=== PATIENT | male | born 1975 | race Caucasian/White ===

== ENCOUNTER → 2017-08-05 | Outpatient (CLI) | payer BC | LOC: COL.RAD 11:30 | DX: N50.812 Left testicular pain (principal); N45.1 Epididymitis ==

== ENCOUNTER 2019-06-09 14:10 | Emergency (ER) | payer BC ==
[~2019-06-09] VITALS: Ht 203.2 cm; Wt 125.0 kg
[2019-06-09 14:15] VITALS: BP 132/80; PULSE 90
[2019-06-09] MEDS ORDERED: MEDROL 4MG DOSPA4 MG PO (15:12)
[2019-06-09] MEDS ORDERED: VALIUM 10MG10 MG/TAB PO (15:12)
[2019-06-09] MEDS ORDERED: LIDODERM 5% PATC1 EA TP (15:12)
[2019-06-09] MEDS ORDERED: PERCOCET 325 MG1 TA2 PO (15:12)
[2019-06-09 15:46] VITALS: TEMP 81
== END 2019-06-09 15:45 | disposition home or self-care (01) ==
LOC: COL.ER 14:10
DX: M54.16 Radiculopathy, lumbar region (principal)
CPT/HCPCS: J1885

== ENCOUNTER → 2021-10-04 | Outpatient (CLI) | payer BC ==
[~2021-10-04] MED LIST: LIDODERM 5% PATC1 EA TP; MEDROL 4MG DOSPA4 MG PO; PERCOCET 325 MG1 TA2 PO; VALIUM 10MG10 MG/TAB PO
== END ==
LOC: COL.VAS 10:09
DX: M79.605 Pain in left leg (principal)

== ENCOUNTER 2024-01-15 14:33 | Emergency (ER) | payer BC ==
[~2024-01-15] VITALS: Ht 203.2 cm; Wt 134.9 kg
[~2024-01-15 14:33] MED LIST changes: +ZYRTEC ALLERGY10 MG PO
[2024-01-15 14:36] VITALS: TEMP 98
[2024-01-15 16:30] VITALS: BP 133/87; PULSE 53
== END 2024-01-15 16:30 | disposition home or self-care (01) ==
LOC: COL.ER 14:33
DX: I80.3 Phlebitis and thrombophlebitis of lower extremities, unspecified (principal)